=== PATIENT | female | born 1975 | race Caucasian/White ===

== ENCOUNTER 2022-12-25 01:02 | Emergency (ER) | payer OTHER ==
[~2022-12-25] VITALS: Ht 160 cm; Wt 79.4 kg
[2022-12-25 01:10] VITALS: BP_SYST 124; PULSE 108; RESP 18; TEMP 97.6; O2SAT 99
[2022-12-25] MEDS ORDERED: KETOROLAC TROMETHAMINE 60 MG/2 ML VIAL IM ONE (01:15)
[2022-12-25] MEDS ORDERED: cefTRIAXone 1 GM in LIDOCAINE 1%, 20 ML MDV 2.1 ML IM ONE (01:15)
[2022-12-25 02:04] VITALS: BP_SYST 122; PULSE 98; RESP 16; TEMP 97.6; O2SAT 98
== END 2022-12-25 02:04 | disposition home or self-care (01) ==
LOC: SED 01:02
DX: H65.192 Other acute nonsuppurative otitis media, left ear (principal); H92.02 Otalgia, left ear; Z79.899 Other long term (current) drug therapy
CPT/HCPCS: 99284; 96372; J0696; J1885; J2001